=== PATIENT | male | born 1930 | race Caucasian/White ===

== ENCOUNTER 2018-05-06 13:17 | Inpatient (IN) | payer MEDICARE ==
[2018-05-06 14:44] VITALS: BP 129/89
[2018-05-06] MEDS ORDERED: Magnesium Hydroxide (MOM) 30 mL UDC PO PRN (14:56)
[2018-05-06] MEDS ORDERED: Maalox 30 mL Cup PO PRN (14:56)
[2018-05-06 15:47] LABS: CHOLESTEROL 181 mg/dL (<200); HDL -HIGH DENSITY LIPOPROTEIN 56 mg/dL (23-92); TRIGLYCERIDES 74 mg/dL (<150)
[2018-05-07] MEDS: Multivitamin Tab PO SCH (09:50)
--- NOTE | 2018-05-07 12:43 | History & Physical ---
ADMIT DATE: 05/06/2018 IDENTIFYING INFORMATION: The patient is an 87-year-old male. CHIEF COMPLAINT: No answer. HISTORY OF PRESENT ILLNESS: The patient is admitted on the hold for grave disability. The patient was unable to care for himself. He was consider also dangerous to self. He was delusional, told officers that he was held captive by his son and there were no signs of such. When I tried talk to him, he was mute, would not answer any of my questions. Unable to participate in a meaningful conversation or make safe plan for self-care. The patient with a history of dementia. He apparently called 2 people on his phone and told them that he was being held against his well by his son, Rodney Armas, who cares for him though he is considered a danger to self because he is unable to care for himself on his own, delusional. PAST PSYCHIATRIC HISTORY: Dementia. MEDICAL HISTORY: The patient has no known drug allergies. MEDICATIONS: The patient is not on any medication. FAMILY AND SOCIAL HISTORY: The patient unable to give much information, unable to get information, if there is any substance abuse problem history. No information regarding how many children he has, and level of education and work. MENTAL STATUS EXAMINATION: The patient is appropriately dressed, not well groomed with sort of alert, but he was mute, would not answer any of my questions. Apparently, he called someone and told them that he was captive by his son, unable to participate in meaningful conversation or make safe plan for self-care, demented, confused, and very poor insight. He slept well last night. He need to be prompted to eat. Long and short term memory is poor. Insight and judgment is impaired. Does not realize has a problem, unable to make safe plan for self-care. IMPRESSION: Psychosis, not otherwise specified, dementia. MEDICAL DIAGNOSES: Deferred to the medical doctor. INITIAL TREATMENT PLAN: The patient will be started on Seroquel 12.5 mg at bedtime. We will do group therapy and milieu therapy. Also, we will start him on Aricept. We will do group therapy, milieu therapy, and individual therapy. ESTIMATED LENGTH OF STAY: 3-7 days. DISCHARGE CRITERIA: Decreasing delusional behavior with a safe discharge plan. After discharge, outpatient treatment. JOB# [id number]
--- NOTE | 2018-05-07 17:48 | History & Physical ---
ADMIT DATE: 05/07/2018 CHIEF COMPLAINT: Direct admission from [facility] for 5150. HISTORY OF PRESENT ILLNESS: This is an 87-year-old male who was transferred from [facility] who is apparently on a 5150 hold. No reports of any fevers. PAST MEDICAL HISTORY: Psychosis. ALLERGIES: No drug allergies. PAST SURGICAL HISTORY: None. REVIEW OF SYSTEMS: GENERAL: Denies any fever or chills. CARDIOVASCULAR: Denies chest pain. RESPIRATORY: Denies shortness of breath. GASTROINTESTINAL: Denies nausea, vomiting, or abdominal pain. GENITOURINARY: Denies increased frequency or dysuria. NEUROLOGIC: No headache, seizure, or syncope. All systems are reviewed and negative. PHYSICAL EXAMINATION: GENERAL: Elderly male, awake, alert, in no apparent distress. VITAL SIGNS: Temperature 97.8, heart rate 60, blood pressure 94/58, respirations 18, and O2 96%. HEENT: Head; normocephalic, atraumatic. NECK: Supple. No mass. LUNGS: Clear bilaterally. HEART: Regular rhythm. ABDOMEN: Soft, nontender. ASSESSMENT: Psychosis. PLAN: We will get patient's A1c level. Fall precautions will be initiated. We will continue to monitor this patient. JOB# [id number]
--- NOTE | 2018-05-08 08:59 | Internal Medicine Prog Note ---
Internal Medicine Subjective - Subjective Service Date: 05/08/18 Patient is:: awake, non-interactive, other (depressed mood ) Internal Medicine Objective - Results Recent Labs: Laboratory Last Values Triglycerides 74 mg/dL (<150) 05/06/18 15:20 Cholesterol 181 mg/dL (<200) 05/06/18 15:20 LDL Cholesterol Direct 105 mg/dL (75-193) 05/06/18 15:20 HDL Cholesterol 56 mg/dL (23-92) 05/06/18 15:20 - Physical Exam Vitals and I&O: Vital Signs Temp 97 F 05/08/18 06:20 Pulse 62 05/08/18 06:20 Resp 18 05/08/18 06:20 BP 149/76 05/08/18 06:20 Pulse Ox 97 05/08/18 06:20 Intake & Output 05/07/18 05/08/18 05/08/18 18:59 06:59 18:59 Intake Total 120 Balance 120 Intake: Oral 120 Other: # Voids 1 # Bowel Movements 0 Active Medications: Current Medications Acetaminophen (Tylenol) 650 mg PO Q4HR PRN PRN Reason: Mild Pain / Temp above 100 Stop: 07/05/18 14:55 Al Hydrox/Mg Hydrox/Simethicone (Maalox) 30 ml PO Q4HR PRN PRN Reason: GI DISTRESS Stop: 07/05/18 14:55 Magnesium Hydroxide (Milk Of Magnesia) 30 ml PO HS PRN PRN Reason: Constipation Multivitamins/Vitamin C (Theragran) 1 tab PO DAILY DOMINIQUE Stop: 07/06/18 08:59 Last Admin: 05/07/18 09:50 Dose: 1 tab Quetiapine Fumarate (Seroquel) 12.5 mg PO HS DOMINIQUE; Protocol Stop: 07/06/18 20:59 Last Admin: 05/07/18 20:17 Dose: 12.5 mg Zolpidem Tartrate (Ambien) 5 mg PO HS PRN PRN Reason: Insomnia Stop: 07/05/18 14:55 Last Admin: 05/07/18 20:17 Dose: 5 mg
[2018-05-08] MEDS: Multivitamin Tab PO SCH ×2 (10:00→11:00)
--- NOTE | 2018-05-08 13:16 | Progress Notes ---
DATE: 05/08/2018 Case was discussed with staff of the patient, reviewed records. The patient is more alert today. He was unable to tell me his age where he is, why he is here or give any information, though he was alert, able to talk. He is unpredictable, impulsive, needing redirection, has no clue about why he is here. I did initiate him on Seroquel yesterday 12.5 mg at bedtime with no side effects, no sedation, no nausea and I will continue the patient in the group therapy, milieu therapy, and adjust the medications. JOB# [id number]
[2018-05-09] MEDS: Multivitamin Tab PO SCH (08:48)
--- NOTE | 2018-05-09 13:25 | Progress Notes ---
DATE: 05/09/2018 Case was discussed with staff of the patient, reviewed records. The patient continues to have poor insight, unpredictable, impulsive. He is demented, confused, unable to make safe plan for self-care. He is supposed to be going back with his son; however, the staff is trying to verify that. They have been trying to call the son with no much success. The patient continues to have poor insight, need help with his ADLs. No side effects with the medication, no sedation, no nausea, no extrapyramidal symptoms. He tolerated the Seroquel with no side effects. We will continue the patient in group therapy, milieu therapy, adjust the medication as needed. [facility]# [id number]
--- NOTE | 2018-05-09 18:36 | Internal Medicine Prog Note ---
Internal Medicine Subjective - Subjective Service Date: 05/09/18 Patient seen and examined:: with staff Patient is:: awake, non-interactive, other (depressed mood ) Internal Medicine Objective - Results Recent Labs: Laboratory Last Values Triglycerides 74 mg/dL (<150) 05/06/18 15:20 Cholesterol 181 mg/dL (<200) 05/06/18 15:20 LDL Cholesterol Direct 105 mg/dL (75-193) 05/06/18 15:20 HDL Cholesterol 56 mg/dL (23-92) 05/06/18 15:20 - Physical Exam Vitals and I&O: Vital Signs Temp 97.9 F 05/09/18 14:00 Pulse 87 05/09/18 14:00 Resp 20 05/09/18 14:00 BP 116/70 05/09/18 14:00 Pulse Ox 98 05/09/18 14:00 Intake & Output 05/08/18 05/09/18 05/09/18 18:59 06:59 18:59 Intake Total 120 960 Balance 120 960 Intake: Oral 120 720 Other 240 Other: # Voids 3 5 # Bowel Movements 0 Active Medications: Current Medications Acetaminophen (Tylenol) 650 mg PO Q4HR PRN PRN Reason: Mild Pain / Temp above 100 Stop: 07/05/18 14:55 Al Hydrox/Mg Hydrox/Simethicone (Maalox) 30 ml PO Q4HR PRN PRN Reason: GI DISTRESS Stop: 07/05/18 14:55 Magnesium Hydroxide (Milk Of Magnesia) 30 ml PO HS PRN PRN Reason: Constipation Multivitamins/Vitamin C (Theragran) 1 tab PO DAILY DOMINIQUE Stop: 07/06/18 08:59 Last Admin: 05/09/18 08:48 Dose: 1 tab Quetiapine Fumarate (Seroquel) 12.5 mg PO HS DOMINIQUE; Protocol Stop: 07/06/18 20:59 Last Admin: 05/08/18 20:47 Dose: 12.5 mg Zolpidem Tartrate (Ambien) 5 mg PO HS PRN PRN Reason: Insomnia Stop: 07/05/18 14:55 Last Admin: 05/07/18 20:17 Dose: 5 mg General: alert HEENT: NC/AT, PERRLA Neck: Supple Lungs: CTAB Cardiovascular: RRR, Normal S1, Normal S2 Extremities: excoriation Neurological: alert Internal Medicine Assmt/Plan - Assessment Assessment: psychosis - Plan Plan: fall precautions cpm
[2018-05-10] MEDS: Multivitamin Tab PO SCH (10:00)
--- NOTE | 2018-05-10 14:26 | Internal Medicine Prog Note ---
Internal Medicine Subjective - Subjective Service Date: 05/10/18 Patient seen and examined:: chart reviewed Patient is:: awake, verbal, interactive, other (not as agitated ) Internal Medicine Objective - Results Recent Labs: Laboratory Last Values Triglycerides 74 mg/dL (<150) 05/06/18 15:20 Cholesterol 181 mg/dL (<200) 05/06/18 15:20 LDL Cholesterol Direct 105 mg/dL (75-193) 05/06/18 15:20 HDL Cholesterol 56 mg/dL (23-92) 05/06/18 15:20 - Physical Exam Vitals and I&O: Vital Signs Temp 97.1 F 05/10/18 06:49 Pulse 62 05/10/18 06:49 Resp 18 05/10/18 06:49 BP 150/73 05/10/18 06:49 Pulse Ox 96 05/10/18 06:49 Intake & Output 05/09/18 05/10/18 05/10/18 18:59 06:59 18:59 Intake Total 960 240 Balance 960 240 Intake: Oral 720 240 Other 240 Other: # Voids 5 2 # Bowel Movements 0 Active Medications: Current Medications Acetaminophen (Tylenol) 650 mg PO Q4HR PRN PRN Reason: Mild Pain / Temp above 100 Stop: 07/05/18 14:55 Al Hydrox/Mg Hydrox/Simethicone (Maalox) 30 ml PO Q4HR PRN PRN Reason: GI DISTRESS Stop: 07/05/18 14:55 Magnesium Hydroxide (Milk Of Magnesia) 30 ml PO HS PRN PRN Reason: Constipation Multivitamins/Vitamin C (Theragran) 1 tab PO DAILY DOMINIQUE Stop: 07/06/18 08:59 Last Admin: 05/10/18 10:00 Dose: Not Given Quetiapine Fumarate (Seroquel) 12.5 mg PO HS DOMINIQUE; Protocol Stop: 07/06/18 20:59 Last Admin: 05/09/18 20:29 Dose: 12.5 mg Zolpidem Tartrate (Ambien) 5 mg PO HS PRN PRN Reason: Insomnia Stop: 07/05/18 14:55 Last Admin: 05/09/18 20:29 Dose: 5 mg General: alert HEENT: NC/AT, PERRLA Neck: Supple Lungs: CTAB Cardiovascular: RRR, Normal S1, Normal S2 Extremities: excoriation Neurological: alert
--- NOTE | 2018-05-10 15:31 | Progress Notes ---
DATE: 05/10/2018 Case was discussed with staff of the patient, reviewed records. I have been trying to call the son, he has not been responding to the calls of the block and case maker and I will try to call them this morning. The patient is more alert today. He was able to talk. He was able to give me the date, but he was unsure where he was. He was unable to tell me who he lives with. He is somewhat confused, demented. I am trying to reach his son to see if he has been tried on medication for dementia. So far, he seems to be doing well on Seroquel with no side effects and his lab work show triglyceride, cholesterol and lipid profile within normal range. Not all lab work is available. We will continue the patient on group therapy and milieu therapy, and adjust medications as needed. JOB# [id number]
[2018-05-11] MEDS: Multivitamin Tab PO SCH (09:39)
--- NOTE | 2018-05-11 22:09 | Progress Notes ---
DATE: 05/11/2018 SUBJECTIVE: The patient was seen in his room. The patient is asleep, but easily arousable. The patient appears to be guarded, in and out of confusion. No obvious signs of acute infection. Otherwise, the patient appears to be guarded and in no acute distress. OBJECTIVE: VITAL SIGNS: Temperature 98.2, heart rate 60, blood pressure 107/60, respirations 20, and 100% on room air. HEENT: Head is atraumatic and normocephalic. Eyes: Bilateral conjunctivae are clear. Bilateral pupils are equally round and reactive. NECK: Supple. No JVD. CARDIOVASCULAR: S1 and S2 without murmur. PULMONARY: Clear to auscultation. GASTROINTESTINAL: Soft and nontender without guarding. Positive bowel sounds. MUSCULOSKELETAL: No clubbing. No cyanosis noted. ASSESSMENT: 1. Psychosis. 2. Osteoarthritis. PLAN: We will keep the patient inpatient psychiatric unit. We will follow up with a psychiatrist to monitor the patient's condition and behavior. Treatment plans were discussed with the patient's nurse. Treatment plans were discussed with Dr. Alvarez. JOB# [id number]
--- NOTE | 2018-05-12 05:44 | Progress Notes ---
DATE: SUBJECTIVE: Case was discussed with staff of the patient, reviewed records. Also met with her son who happened to be visiting him. I discussed_with son if father took any medication for dementia and he said no and I discussed with him and starting the patient on Aricept and he agreed. He reported that he would like his father to go back home with him. He reports his father get [employer] benefits and he would like to keep taking care of him. The patient continues to be confused, continues to be unpredictable, impulsive, needing redirection with episodes of agitation and irritability. He is sleeping better, eating better. No side effects with the medication, no sedation, no nausea, no nausea, no extrapyramidal symptoms with outpatient group therapy, milieu therapy, adjust medications as needed. JOB# [id number] [email or web address]
[2018-05-12] MEDS: Multivitamin Tab PO SCH (08:56)
--- NOTE | 2018-05-12 13:52 | Internal Medicine Prog Note ---
Internal Medicine Subjective - Subjective Service Date: 05/12/18 Patient is:: awake, verbal, interactive, other (not as agitated ) Internal Medicine Objective - Results Recent Labs: Laboratory Last Values Triglycerides 74 mg/dL (<150) 05/06/18 15:20 Cholesterol 181 mg/dL (<200) 05/06/18 15:20 LDL Cholesterol Direct 105 mg/dL (75-193) 05/06/18 15:20 HDL Cholesterol 56 mg/dL (23-92) 05/06/18 15:20 - Physical Exam Vitals and I&O: Vital Signs Temp 97.7 F 05/12/18 06:17 Pulse 62 05/12/18 06:17 Resp 18 05/12/18 06:17 BP 151/77 05/12/18 06:17 Pulse Ox 97 05/12/18 06:17 Intake & Output 05/11/18 05/12/18 05/12/18 18:59 06:59 18:59 Intake Total 800 120 Balance 800 120 Intake: Oral 800 120 Other: # Voids 3 3 # Bowel Movements 1 Active Medications: Current Medications Acetaminophen (Tylenol) 650 mg PO Q4HR PRN PRN Reason: Mild Pain / Temp above 100 Stop: 07/05/18 14:55 Al Hydrox/Mg Hydrox/Simethicone (Maalox) 30 ml PO Q4HR PRN PRN Reason: GI DISTRESS Stop: 07/05/18 14:55 Donepezil HCl (Aricept) 5 mg PO HS DOMINIQUE Stop: 07/10/18 20:59 Last Admin: 05/11/18 20:58 Dose: 5 mg Multivitamins/Vitamin C (Theragran) 1 tab PO DAILY DOMINIQUE Stop: 07/06/18 08:59 Last Admin: 05/12/18 08:56 Dose: 1 tab Quetiapine Fumarate (Seroquel) 12.5 mg PO HS DOMINIQUE; Protocol Stop: 07/06/18 20:59 Last Admin: 05/11/18 20:58 Dose: 12.5 mg Zolpidem Tartrate (Ambien) 5 mg PO HS PRN PRN Reason: Insomnia Stop: 07/05/18 14:55 Last Admin: 05/11/18 20:58 Dose: 5 mg General: alert HEENT: NC/AT, PERRLA Neck: Supple Lungs: CTAB Cardiovascular: RRR, Normal S1, Normal S2 Extremities: excoriation Neurological: alert Internal Medicine Assmt/Plan - Assessment Assessment: psychosis - Plan Plan: fall precautions cpm Nutritional Asmnt/Malnutr-PDOC - Dietary Evaluation Malnutrition Findings (Please click <Entered> for more info): Nutritional Asmnt/Malnutrition Start: 05/10/18 14: 40 Text: Status: Complete Freq: Protocol: Document 05/10/18 14:40 NAKUL (Rec: 05/10/18 14:50 LCHEN [email or web address]) Nutritional Asmnt/Malnutrition Patient General Information Nutritional Screening Moderate Risk Diagnosis psychosis NOS Pertinent Medical Hx/Surgical Hx psychosis Subjective Information Pt seen lying in bed, awake and alert. Pt stated he is trying to finish all his meals and his last BM was few days ago and wound like to get prune juice at breakfast. Per EMR, PO intake 100%. Current Diet Order/ Nutrition Support regular Pertinent Medications theragran, seroquel Pertinent Labs 05/06 reviewed Nutritional Hx/Data Height 5 ft 10 in Height (Calculated Centimeters) 177.8 Current Weight (lbs) 165 lb Weight (Calculated Kilograms) 74.8 Weight (Calculated Grams) 39562.7 [place] Body Weight 166 Body Mass Index (BMI) 23.6 Weight Status Approriate GI Symptoms GI Symptoms Constipation Last BM none Difficult in: None Skin Integrity/Comment: intact Current %PO Good (75-100%) Estimated Nutritional Goals BEE in Kcals: Using Current wt Calories/Kcals/Kg 25-30 Kcals Calculated 3146-4829 Protein: Using Current wt Protein g/k Protein Calculated 75 Fluid: ml 1875-2250ml (1ml/kcal) Nutritional Problem No current Nutrition Prob Problem N/A Malnutrition Alert Is there a minimum of two criteria No selected? Query Text:Check all the applicable criteria. A minimum of two criteria are recommended for diagnosis of either severe or non-severe malnutrition. Malnutrition Related to Morbid Obesity Malnutrition related to morbid obesity No Intervention/Recommendation Comments 1. Continue with regular diet as ordered. Add Prune juice at breakfast for 3 days to help with constipation. 2. Monitor PO intake, wt, labs and skin integrity 3. F/U as low risk in 7 days Expected Outcomes/Goals Expected Outcomes/Goals 1. PO intake to meet at least 75% of nutritional needs. 2. Wt stability, skin to remain intact, labs to approach WNL.
--- NOTE | 2018-05-13 02:57 | Progress Notes ---
DATE: 05/12/2018 SUBJECTIVE: Case was discussed with staff of the patient, reviewed records. The patient was initiated on Aricept yesterday after I talked to the son, who said never take any medication for dementia. The patient's son would like for him to be back home with him and he is looking to [facility] for help. The patient is sleeping better and eating better. He is calmer now since using Seroquel 12.5 mg at bedtime with no side effects, no sedation, no nausea, and no extrapyramidal symptoms. We will continue to work with the patient in group therapy, milieu therapy, and adjust medication as needed. JOB# [id number]
[2018-05-13] MEDS: Multivitamin Tab PO SCH (08:36)
--- NOTE | 2018-05-13 12:52 | Internal Medicine Prog Note ---
Internal Medicine Subjective - Subjective Service Date: 05/13/18 Patient is:: awake, verbal, interactive, other (not as agitated ) Internal Medicine Objective - Results Recent Labs: Laboratory Last Values Triglycerides 74 mg/dL (<150) 05/06/18 15:20 Cholesterol 181 mg/dL (<200) 05/06/18 15:20 LDL Cholesterol Direct 105 mg/dL (75-193) 05/06/18 15:20 HDL Cholesterol 56 mg/dL (23-92) 05/06/18 15:20 - Physical Exam Vitals and I&O: Vital Signs Temp 97.4 F 05/13/18 06:24 Pulse 65 05/13/18 06:24 Resp 18 05/13/18 06:24 BP 148/78 05/13/18 06:24 Pulse Ox 98 05/13/18 06:24 Intake & Output 05/12/18 05/13/18 05/13/18 18:59 06:59 18:59 Intake Total 240 Balance 240 Intake: Oral 240 Other: # Voids 1 Active Medications: Current Medications Acetaminophen (Tylenol) 650 mg PO Q4HR PRN PRN Reason: Mild Pain / Temp above 100 Stop: 07/05/18 14:55 Al Hydrox/Mg Hydrox/Simethicone (Maalox) 30 ml PO Q4HR PRN PRN Reason: GI DISTRESS Stop: 07/05/18 14:55 Donepezil HCl (Aricept) 5 mg PO HS [facility] Stop: 07/10/18 20:59 Last Admin: 05/12/18 20:58 Dose: 5 mg Memantine (Namenda) 5 mg PO DAILY DOMINIQUE Stop: 07/13/18 08:59 Multivitamins/Vitamin C (Theragran) 1 tab PO DAILY DOMINIQUE Stop: 07/06/18 08:59 Last Admin: 05/13/18 08:36 Dose: 1 tab Quetiapine Fumarate (Seroquel) 12.5 mg PO HS DOMINIQUE; Protocol Stop: 07/06/18 20:59 Last Admin: 05/12/18 20:58 Dose: 12.5 mg Zolpidem Tartrate (Ambien) 5 mg PO HS PRN PRN Reason: Insomnia Stop: 07/05/18 14:55 Last Admin: 05/12/18 20:58 Dose: 5 mg General: alert HEENT: NC/AT, PERRLA Neck: Supple Lungs: CTAB Cardiovascular: RRR, Normal S1, Normal S2 Extremities: excoriation Neurological: alert Internal Medicine Assmt/Plan - Assessment Assessment: psychosis - Plan Plan: fall precautions cpm Nutritional Asmnt/Malnutr-PDOC - Dietary Evaluation Malnutrition Findings (Please click <Entered> for more info): Nutritional Asmnt/Malnutrition Start: 05/10/18 14: 40 Text: Status: Complete Freq: Protocol: [facility]10/18 14:40 [facility] (Rec: 05/10/18 14:50 LCHENG [email or web address]) Nutritional Asmnt/Malnutrition Patient General Information Nutritional Screening Moderate Risk Diagnosis psychosis NOS Pertinent Medical Hx/Surgical Hx psychosis Subjective Information Pt seen lying in bed, awake and alert. Pt stated he is trying to finish all his meals and his last BM was few days ago and wound like to get prune juice at breakfast. Per EMR, PO intake 100%. Current Diet Order/ Nutrition Support regular Pertinent Medications theragran, seroquel Pertinent Labs 05/06 reviewed Nutritional Hx/Data Height 5 ft 10 in Height (Calculated Centimeters) 177.8 Current Weight (lbs) 165 lb Weight (Calculated Kilograms) 74.8 Weight (Calculated Grams) 97795.7 [place] Body Weight 166 Body Mass Index (BMI) 23.6 Weight Status Approriate GI Symptoms GI Symptoms Constipation Last BM none Difficult in: None Skin Integrity/Comment: intact Current %PO Good (75-100%) Estimated Nutritional Goals BEE in Kcals: Using Current wt Calories/Kcals/Kg 25-30 Kcals Calculated 4011-7548 Protein: Using Current wt Protein g/k Protein Calculated 75 Fluid: ml 1875-2250ml (1ml/kcal) Nutritional Problem No current Nutrition Prob Problem N/A Malnutrition Alert Is there a minimum of two criteria No selected? Query Text:Check all the applicable criteria. A minimum of two criteria are recommended for diagnosis of either severe or non-severe malnutrition. Malnutrition Related to Morbid Obesity Malnutrition related to morbid obesity No Intervention/Recommendation Comments 1. Continue with regular diet as ordered. Add Prune juice at breakfast for 3 days to help with constipation. 2. Monitor PO intake, wt, labs and skin integrity 3. F/U as low risk in 7 days Expected Outcomes/Goals Expected Outcomes/Goals 1. PO intake to meet at least 75% of nutritional needs. 2. Wt stability, skin to remain intact, labs to approach WNL.
--- NOTE | 2018-05-14 00:15 | Progress Notes ---
DATE: 05/13/2018 Case was discussed with staff of the patient and reviewed records. The patient continues to be confused. He continues to be unpredictable, impulsive, paranoid, delusional. He does have no memory how long he has been here. I will be initiating Namenda on this patient to help improve his cognition at 5 mg daily. He also was initiated on Aricept 5 mg at bedtime and he is on Seroquel 12.5 mg daily. No side effects, no sedation, no nausea, and no extrapyramidal symptoms. We will continue to work with the patient in group therapy, milieu therapy, and adjust medication as needed. JOB# [id number]
[2018-05-14] MEDS: Multivitamin Tab PO SCH (09:32)
--- NOTE | 2018-05-15 00:20 | Progress Notes ---
DATE: 05/14/2018 Case was discussed with staff of the patient, reviewed records. The patient continues to be demented and confused. He tolerated adding Namenda. He is also on Aricept. Continues to be unable to make safe plan for self-care. I discussed the care with his son; however, it seemed like the son had not been returning the calls as I happen to meet him here as he was coming to visit. His son was able to give me information and tell me that he will be taken back home when he is ready. The patient is sleeping better, eating better. No side effects with the medication, no sedation, no nausea and no extrapyramidal symptoms. We will work with the patient in group therapy, milieu therapy, adjust the medication as needed. JOB# [id number]
[2018-05-15] MEDS: Multivitamin Tab PO SCH (09:28)
--- NOTE | 2018-05-15 14:45 | Internal Medicine Prog Note ---
Internal Medicine Subjective - Subjective Service Date: 05/15/18 Patient is:: awake, verbal, interactive, other (not as agitated ) Internal Medicine Objective - Results Recent Labs: Laboratory Last Values Triglycerides 74 mg/dL (<150) 05/06/18 15:20 Cholesterol 181 mg/dL (<200) 05/06/18 15:20 LDL Cholesterol Direct 105 mg/dL (75-193) 05/06/18 15:20 HDL Cholesterol 56 mg/dL (23-92) 05/06/18 15:20 - Physical Exam Vitals and I&O: Vital Signs Temp 97.8 F 05/15/18 06:35 Pulse 85 05/15/18 06:35 Resp 18 05/15/18 06:35 BP 149/81 05/15/18 06:35 Pulse Ox 100 05/15/18 06:35 Intake & Output 05/14/18 05/15/18 05/15/18 18:59 06:59 18:59 Intake Total 1400 120 Balance 1400 120 Intake: Oral 1400 120 Other: # Voids 3 2 # Bowel Movements 0 0 Active Medications: Current Medications Acetaminophen (Tylenol) 650 mg PO Q4HR PRN PRN Reason: Mild Pain / Temp above 100 Stop: 07/05/18 14:55 Al Hydrox/Mg Hydrox/Simethicone (Maalox) 30 ml PO Q4HR PRN PRN Reason: GI DISTRESS Stop: 07/05/18 14:55 Donepezil HCl (Aricept) 5 mg PO HS [facility] Stop: 07/10/18 20:59 Last Admin: 05/14/18 21:18 Dose: 5 mg Memantine (Namenda) 5 mg PO DAILY [facility] Stop: 07/13/18 08:59 Last Admin: 05/15/18 09:28 Dose: 5 mg Multivitamins/Vitamin C (Theragran) 1 tab PO DAILY [facility] Stop: 07/06/18 08:59 Last Admin: 05/15/18 09:28 Dose: 1 tab Quetiapine Fumarate (Seroquel) 12.5 mg PO HS [facility]; Protocol Stop: 07/06/18 20:59 Last Admin: 05/14/18 21:18 Dose: 12.5 mg Zolpidem Tartrate (Ambien) 5 mg PO HS PRN PRN Reason: Insomnia Stop: 07/05/18 14:55 Last Admin: 04/09/19 21:18 Dose: 5 mg General: alert HEENT: NC/AT, PERRLA Neck: Supple Lungs: CTAB Cardiovascular: RRR, Normal S1, Normal S2 Extremities: excoriation Neurological: alert Internal Medicine Assmt/Plan - Assessment Assessment: psychosis - Plan Plan: fall precautions cpm Nutritional Asmnt/Malnutr-PDOC - Dietary Evaluation Malnutrition Findings (Please click <Entered> for more info): Nutritional Asmnt/Malnutrition Start: 05/10/18 14: 40 Text: Status: Complete Freq: Protocol: Document 05/10/18 14:40 LCHENG (Rec: 05/10/18 14:50 [email or web address]) Nutritional Asmnt/Malnutrition Patient General Information Nutritional Screening Moderate Risk Diagnosis psychosis NOS Pertinent Medical Hx/Surgical Hx psychosis Subjective Information Pt seen lying in bed, awake and alert. Pt stated he is trying to finish all his meals and his last BM was few days ago and wound like to get prune juice at breakfast. Per EMR, PO intake 100%. Current Diet Order/ Nutrition Support regular Pertinent Medications theragran, seroquel Pertinent Labs 05/06 reviewed Nutritional Hx/Data Height 5 ft 10 in Height (Calculated Centimeters) 177.8 Current Weight (lbs) 165 lb Weight (Calculated Kilograms) 74.8 Weight (Calculated Grams) 34593.7 [place] Body Weight 166 Body Mass Index (BMI) 23.6 Weight Status Approriate GI Symptoms GI Symptoms Constipation Last BM none Difficult in: None Skin Integrity/Comment: intact Current %PO Good (75-100%) Estimated Nutritional Goals BEE in Kcals: Using Current wt Calories/Kcals/Kg 25-30 Kcals Calculated 4786-5123 Protein: Using Current wt Protein g/k Protein Calculated 75 Fluid: ml 1875-2250ml (1ml/kcal) Nutritional Problem No current Nutrition Prob Problem N/A Malnutrition Alert Is there a minimum of two criteria No selected? Query Text:Check all the applicable criteria. A minimum of two criteria are recommended for diagnosis of either severe or non-severe malnutrition. Malnutrition Related to Morbid Obesity Malnutrition related to morbid obesity No Intervention/Recommendation Comments 1. Continue with regular diet as ordered. Add Prune juice at breakfast for 3 days to help with constipation. 2. Monitor PO intake, wt, labs and skin integrity 3. F/U as low risk in 7 days Expected Outcomes/Goals Expected Outcomes/Goals 1. PO intake to meet at least 75% of nutritional needs. 2. Wt stability, skin to remain intact, labs to approach WNL.
--- NOTE | 2018-05-15 19:05 | Internal Medicine Prog Note ---
Internal Medicine Subjective - Subjective Service Date: 05/14/18 Patient seen and examined:: with staff Patient is:: awake, verbal, interactive, other (less agitated ) Patient Complaints of:: other (easily agitated.) Per staff patient has:: no adverse event, no episodes of fall Internal Medicine Objective - Results Recent Labs: Laboratory Last Values Triglycerides 74 mg/dL (<150) 05/06/18 15:20 Cholesterol 181 mg/dL (<200) 05/06/18 15:20 LDL Cholesterol Direct 105 mg/dL (75-193) 05/06/18 15:20 HDL Cholesterol 56 mg/dL (23-92) 05/06/18 15:20 - Physical Exam Vitals and I&O: Vital Signs Temp 98.2 F 05/15/18 14:00 Pulse 60 05/15/18 14:00 Resp 20 05/15/18 14:00 BP 110/63 05/15/18 14:00 Pulse Ox 99 05/15/18 14:00 Intake & Output 05/14/18 05/15/18 05/15/18 18:59 06:59 18:59 Intake Total 8516 762 5108 Balance 8406 976 0253 Intake: Oral 5681 193 3600 Other: # Voids 3 2 # Bowel Movements 0 0 1 Active Medications: Current Medications Acetaminophen (Tylenol) 650 mg PO Q4HR PRN PRN Reason: Mild Pain / Temp above 100 Stop: 07/05/18 14:55 Al Hydrox/Mg Hydrox/Simethicone (Maalox) 30 ml PO Q4HR PRN PRN Reason: GI DISTRESS Stop: 07/05/18 14:55 Donepezil HCl (Aricept) 5 mg PO [facility] Stop: 07/10/18 20:59 Last Admin: 05/14/18 21:18 Dose: 5 mg Memantine (Namenda) 5 mg PO DAILY [facility] Stop: 07/13/18 08:59 Last Admin: 05/15/18 09:28 Dose: 5 mg Multivitamins/Vitamin C (Theragran) 1 tab PO DAILY [facility] Stop: 07/06/18 08:59 Last Admin: 05/15/18 09:28 Dose: 1 tab Quetiapine Fumarate (Seroquel) 12.5 mg PO [facility]; Protocol Stop: 07/06/18 20:59 Last Admin: 05/14/18 21:18 Dose: 12.5 mg Zolpidem Tartrate (Ambien) 5 mg PO HS PRN PRN Reason: Insomnia Stop: 07/05/18 14:55 Last Admin: 05/14/18 21:18 Dose: 5 mg Physical Exam: 87 y/o male patient is impulsive and is easily agitated. General: alert HEENT: NC/AT, PERRLA Neck: Supple Lungs: CTAB Cardiovascular: RRR, Normal S1, Normal S2 Abdomen: soft, non-tender Extremities: excoriation Neurological: alert Internal Medicine Assmt/Plan - Assessment Assessment: Agitated. Psychosis. - Plan Plan: Continuation of care continue present meds as directed fall precaution safety precaution patient will followup with Psych continue present care management. Nutritional Asmnt/Malnutr-PDOC - Dietary Evaluation Malnutrition Findings (Please click <Entered> for more info): Nutritional Asmnt/Malnutrition Start: 05/10/18 14: 40 Text: Status: Complete Freq: Protocol: Document 05/10/18 14:40 LCHENG (Rec: 05/10/18 14:50 [email or web address] [email or web address]) Nutritional Asmnt/Malnutrition Patient General Information Nutritional Screening Moderate Risk Diagnosis psychosis NOS Pertinent Medical Hx/Surgical Hx psychosis Subjective Information Pt seen lying in bed, awake and alert. Pt stated he is trying to finish all his meals and his last BM was few days ago and wound like to get prune juice at breakfast. Per EMR, PO intake 100%. Current Diet Order/ Nutrition Support regular Pertinent Medications theragran, seroquel Pertinent Labs 05/06 reviewed Nutritional Hx/Data Height 1.78 m Height (Calculated Centimeters) 177.8 Current Weight (lbs) 74.843 kg Weight (Calculated Kilograms) 74.8 Weight (Calculated Grams) 35094.7 [place] Body Weight 166 Body Mass Index (BMI) 23.6 Weight Status Approriate GI Symptoms GI Symptoms Constipation Last BM none Difficult in: None Skin Integrity/Comment: intact Current %PO Good (75-100%) Estimated Nutritional Goals BEE in Kcals: Using Current wt Calories/Kcals/Kg 25-30 Kcals Calculated 7004-1616 Protein: Using Current wt Protein g/k Protein Calculated 75 Fluid: ml 1875-2250ml (1ml/kcal) Nutritional Problem No current Nutrition Prob Problem N/A Malnutrition Alert Is there a minimum of two criteria No selected? Query Text:Check all the applicable criteria. A minimum of two criteria are recommended for diagnosis of either severe or non-severe malnutrition. Malnutrition Related to Morbid Obesity Malnutrition related to morbid obesity No Intervention/Recommendation Comments 1. Continue with regular diet as ordered. Add Prune juice at breakfast for 3 days to help with constipation. 2. Monitor PO intake, wt, labs and skin integrity 3. F/U as low risk in 7 days Expected Outcomes/Goals Expected Outcomes/Goals 1. PO intake to meet at least 75% of nutritional needs. 2. Wt stability, skin to remain intact, labs to approach WNL.
--- NOTE | 2018-05-16 00:10 | Progress Notes ---
DATE: 05/15/2018 SUBJECTIVE: Case was discussed with staff of the patient, reviewed records. The patient is more oriented. He was able to recognize me today, though 2 days ago he was unable to remember talking to me except for once. He tolerated the adding of the Namenda and he is on Aricept and Seroquel. No side effects, no sedation, no extrapyramidal symptoms. He has his lipid panel within normal range. We will continue the patient in the group therapy, milieu therapy, and adjust the medications as needed. JOB# [id number]
[2018-05-16] MEDS: Multivitamin Tab PO SCH (09:04)
--- NOTE | 2018-05-16 12:58 | Progress Notes ---
DATE: 05/15/2018 Case was discussed with staff of the patient, reviewed records. The patient is an obese himself. Continues to be demented, confused; however. In general, no acting out behavior. He is sleeping well. He is eating well. He denies any current intent to harm herself or anybody. seems to have better insight towards he is still demented, but it is improving. No side effects of the medication, no sedation or nausea. No self-harm, no nausea, no extrapyramidal symptoms. I will discharge plan. I advised the staff to call his son and telling his father. He leaving tomorrow. We will continue the patient with open therapy, and adjust medications as needed. [facility]# [id number]
--- NOTE | 2018-05-16 22:26 | Internal Medicine Prog Note ---
Internal Medicine Subjective - Subjective Service Date: 05/16/18 Patient is:: awake, verbal, interactive, other (less agitated ) Patient Complaints of:: other (easily agitated.) Per staff patient has:: no adverse event, no episodes of fall Internal Medicine Objective - Results Recent Labs: Laboratory Last Values Triglycerides 74 mg/dL (<150) 05/06/18 15:20 Cholesterol 181 mg/dL (<200) 05/06/18 15:20 LDL Cholesterol Direct 105 mg/dL (75-193) 05/06/18 15:20 HDL Cholesterol 56 mg/dL (23-92) 05/06/18 15:20 - Physical Exam Vitals and I&O: Vital Signs Temp 97.6 F 05/16/18 20:00 Pulse 58 05/16/18 20:00 Resp 18 05/16/18 20:00 BP 130/73 05/16/18 20:00 Pulse Ox 95 05/16/18 20:00 Intake & Output 05/16/18 05/16/18 05/17/18 06:59 18:59 06:59 Intake Total 120 1400 Output Total 800 Balance 120 600 Intake: Oral 120 1400 Output: Urine 800 Other: # Voids 3 # Bowel Movements 1 Active Medications: Current Medications Acetaminophen (Tylenol) 650 mg PO Q4HR PRN PRN Reason: Mild Pain / Temp above 100 Stop: 07/05/18 14:55 Al Hydrox/Mg Hydrox/Simethicone (Maalox) 30 ml PO Q4HR PRN PRN Reason: GI DISTRESS Stop: 07/05/18 14:55 Donepezil HCl (Aricept) 5 mg PO [facility] Stop: 07/10/18 20:59 Last Admin: 05/16/18 20:38 Dose: 5 mg Memantine (Namenda) 5 mg PO DAILY [facility] Stop: 07/13/18 08:59 Last Admin: 05/16/18 09:03 Dose: 5 mg Multivitamins/Vitamin C (Theragran) 1 tab PO DAILY [facility] Stop: 07/06/18 08:59 Last Admin: 05/16/18 09:04 Dose: 1 tab Quetiapine Fumarate (Seroquel) 12.5 mg PO [facility]; Protocol Stop: 07/06/18 20:59 Last Admin: 05/16/18 20:38 Dose: 12.5 mg Zolpidem Tartrate (Ambien) 5 mg PO HS PRN PRN Reason: Insomnia Stop: 07/05/18 14:55 Last Admin: 05/14/18 21:18 Dose: 5 mg Physical Exam: 87 y/o male patient is impulsive and is easily agitated. General: alert HEENT: NC/AT, PERRLA Neck: Supple Lungs: CTAB Cardiovascular: RRR, Normal S1, Normal S2 Abdomen: soft, non-tender Extremities: excoriation Neurological: alert Internal Medicine Assmt/Plan - Assessment Assessment: Agitated. Psychosis. - Plan Plan: Continuation of care continue present meds as directed fall precaution safety precaution patient will followup with Psych continue present care management. Nutritional Asmnt/Malnutr-PDOC - Dietary Evaluation Malnutrition Findings (Please click <Entered> for more info): Nutritional Asmnt/Malnutrition Start: 05/10/18 14: 40 Text: Status: Complete Freq: Protocol: Document 05/10/18 14:40 LCHENG (Rec: 05/10/18 14:50 [email or web address]) Nutritional Asmnt/Malnutrition Patient General Information Nutritional Screening Moderate Risk Diagnosis psychosis NOS Pertinent Medical Hx/Surgical Hx psychosis Subjective Information Pt seen lying in bed, awake and alert. Pt stated he is trying to finish all his meals and his last BM was few days ago and wound like to get prune juice at breakfast. Per EMR, PO intake 100%. Current Diet Order/ Nutrition Support regular Pertinent Medications theragran, seroquel Pertinent Labs 05/06 reviewed Nutritional Hx/Data Height 1.78 m Height (Calculated Centimeters) 177.8 Current Weight (lbs) 74.843 kg Weight (Calculated Kilograms) 74.8 Weight (Calculated Grams) 85388.7 [place] Body Weight 166 Body Mass Index (BMI) 23.6 Weight Status Approriate GI Symptoms GI Symptoms Constipation Last BM none Difficult in: None Skin Integrity/Comment: intact Current %PO Good (75-100%) Estimated Nutritional Goals BEE in Kcals: Using Current wt Calories/Kcals/Kg 25-30 Kcals Calculated 3717-7708 Protein: Using Current wt Protein g/k Protein Calculated 75 Fluid: ml 1875-2250ml (1ml/kcal) Nutritional Problem No current Nutrition Prob Problem N/A Malnutrition Alert Is there a minimum of two criteria No selected? Query Text:Check all the applicable criteria. A minimum of two criteria are recommended for diagnosis of either severe or non-severe malnutrition. Malnutrition Related to Morbid Obesity Malnutrition related to morbid obesity No Intervention/Recommendation Comments 1. Continue with regular diet as ordered. Add Prune juice at breakfast for 3 days to help with constipation. 2. Monitor PO intake, wt, labs and skin integrity 3. F/U as low risk in 7 days Expected Outcomes/Goals Expected Outcomes/Goals 1. PO intake to meet at least 75% of nutritional needs. 2. Wt stability, skin to remain intact, labs to approach WNL.
[2018-05-17] MEDS: Multivitamin Tab PO SCH (09:59)
--- NOTE | 2018-05-17 16:45 | Discharge Summary ---
DATE OF DISCHARGE: 05/17/2018 IDENTIFYING INFORMATION: The patient is an 87-year-old male. HISTORY OF PRESENT ILLNESS: The patient was admitted on a hold for grave disability. The patient was unable to care for himself. He was considered dangerous to self. He was delusional told officers that he was held captive by his son and there were no signs of such. When I tried to talk to him, he was mute, would not answering of my question and aggression, participate in meaningful conversation or make safe plan for self-care, demented, confused. History of dementia. He felt to be on his phone and told him he was held against his well by his son. The patient has no known drug allergy. The patient was not on any medications. COURSE IN THE HOSPITAL: The patient was started on Seroquel 12.5 mg at bedtime and because of his dementia, I added Aricept 5 mg at bedtime, Namenda 5 mg daily. The patient progressively got better. He was no longer acting out. He was able to identify me, remember talking to me. I talked to his son twice, when he was here, as I left him a message and he never answer me, but he happens to be here, so I talked to him the day of admission and day of discharge and son is willing to take care of him. He said that he has [employer] benefits and will make sure he is safe. He says the patient is doing well and he is no longer acting out in anyway dangerous. We felt he could be discharged to a lesser level of care. He has a good discharge plan. He was pleasant, cooperative, and no longer paranoid. FINAL DIAGNOSES: Psychosis, not otherwise specified; dementia. MEDICAL DIAGNOSES: As per medical doctor. The patient will follow up with the psychiatrist and primary care physician. EXPECTED OUTCOME: Stable, if the patient complies with the above. [facility]# [id number]
== END 2018-05-17 13:00 | disposition home or self-care (01) | DRG 885 ==
LOC: GERO 13:17
PROVIDERS: ADMIT Psychiatry & Neurology Psychiatry; ATTEND Psychiatry & Neurology Psychiatry
DX: F29 Unspecified psychosis not due to a substance or known physiological condition (principal); F03.90 Unspecified dementia, unspecified severity, without behavioral disturbance, psychotic disturbance, mood disturbance, and anxiety; M19.90 Unspecified osteoarthritis, unspecified site
CPT/HCPCS: 36415-UA; 80061-TC; 83036-90; G0410